=== PATIENT | female | born 2000 | race Caucasian/White ===

== ENCOUNTER 2022-07-12 11:31 | Inpatient (IN) | payer MEDICAID ==
[~2022-07-12] VITALS: Ht 154.9 cm; Wt 76.7 kg
[2022-07-12] MEDS ORDERED: TERBUTALINE SULFATE 1 MG/ML VIAL SUBCUT ONE (12:45)
[2022-07-12] MEDS ORDERED: MORPHINE 4 MG INJ. 4 MG/ML VIAL IVP PRN (12:45)
[2022-07-12] MEDS ORDERED: MISOPROSTOL 100 MCG TABLET (CYTOTEC) VG ONE (13:00)
[2022-07-12 13:42] LABS: BASOPHILS % (AUTO) 0.4 % (0.0-2.0); EOSINOPHILS # (AUTO) 0.1 K/uL (0.0-0.4); EOSINOPHILS % (AUTO) 0.9 % (0.0-4.0); HEMATOCRIT 30.4 % (36-48); HEMOGLOBIN 10.4 g/dL (12.0-16.0); LYMPHOCYTES # (AUTO) 1.2 K/uL (1.0-5.5); LYMPHOCYTES % (AUTO) 13.3 % (20.5-51.5); MEAN CORPUSCULAR HEMOGLOBIN 29 pg (27-31); MEAN CORPUSCULAR HGB CONC 34 % (32-36); MEAN CORPUSCULAR VOLUME 84 fL (79.0-98.0); MONOCYTES # (AUTO) 0.6 K/uL (0.0-1.0); MONOCYTES % (AUTO) 7.2 % (1.7-9.3); NEUTROPHILS # (AUTO) 6.9 K/uL (1.8-7.7); NEUTROPHILS % (AUTO) 78.2 % (40.0-70.0); PLATELET COUNT (AUTO) 242 K/uL (130-430); RED BLOOD CELL COUNT(AUTO) 3.62 MIL/uL (4.2-6.2); WHITE BLOOD COUNT (AUTO) 8.8 K/uL (4.8-10.8)
[2022-07-12] MEDS: LR 1,000 ML IV SCH (13:51)
[2022-07-12] MEDS: MISOPROSTOL 100 MCG TABLET (CYTOTEC) VG SCH ×2 (13:53→22:55)
[2022-07-12] MEDS ORDERED: ACYCLOVIR 400 MG TABLET PO SCH (15:00)
[2022-07-12] MEDS: ACYCLOVIR 400 MG TABLET PO SCH (15:52)
[2022-07-12 18:08] VITALS: BP_SYST 110
[2022-07-12] MEDS ORDERED: FENT2mCg/mL-ROPIVA0.2%/NS EPID 200 ML EP SCH (22:00)
[2022-07-12] MEDS ORDERED: ONDANSETRON HCL 4 MG/2 ML VIAL IVP PRN (22:00)
[2022-07-13] MEDS: LR 1,000 ML IV SCH (00:16)
[2022-07-13] MEDS: ACYCLOVIR 400 MG TABLET PO SCH ×2 (02:12→18:42)
[2022-07-13] MEDS ORDERED: OXYTOCIN/0.9 % SODIUM CHLORIDE 1,000 ML IV SCH (03:15)
[2022-07-13] MEDS ORDERED: fentaNYL CITRATE/PF 100 MCG/2 ML AMP ONE (10:54)
[2022-07-13] MEDS ORDERED: ROPIVACAINE HCL/PF 0.2% 200 ML ONE (10:55)
[2022-07-14] MEDS ORDERED: ROPIVACAINE HCL/PF 0.2% 200 ML ONE (01:15)
[2022-07-14] MEDS: ACYCLOVIR 400 MG TABLET PO SCH ×2 (02:32→14:12)
[2022-07-14] MEDS: LR 1,000 ML IV SCH ×2 (12:51→20:25)
--- NOTE | 2022-07-14 14:30 | NUR ---
CM: Late entry; Request from OB charge nurse, Pollo to arrange BLS /ambulance transfer pt to [facility], OB dept bed # 3. Addendum: 07/14/22 at 1618 by Rex Tian RN Booked with [facility] dispatcher/[facility], S with [facility] contracted rate , approved by JERALD Villatoro. The [facility] copy faxed back to [facility] per request.
[2022-07-14 14:49] LABS: BILIRUBIN,URINE NEGATIVE (NEGATIVE); BLOOD, URINE 2+ (NEGATIVE); CLARITY/URINE CLEAR (CLEAR); COLOR,URINE YELLOW (YELLOW); GLUCOSE,URINE NEGATIVE (NEGATIVE); KETONES,URINE 3+ (NEGATIVE); NITRITE, URINE NEGATIVE (NEGATIVE); PROTEIN URINE NEGATIVE (NEGATIVE); UROBILINOGEN,URINE 0.2 (0.2-1.0)
[2022-07-14 15:01] LABS: LEUKOCYTE ESTERASE ,URINE TRACE (NEGATIVE)
[2022-07-14 15:02] LABS: BACTERIA,URINE FEW /HPF (None Seen); MUCUS,URINE None Seen /LPF (None Seen); RBC,URINE 0-3 /HPF (0-3)
== END 2022-07-14 21:10 | disposition short-term general hospital (02) | DRG 566 ==
LOC: SPU 11:31
PROVIDERS: ADMIT Obstetrics & Gynecology; ATTEND Obstetrics & Gynecology
DX: O36.8330 Maternal care for abnormalities of the fetal heart rate or rhythm, third trimester, not applicable or unspecified (principal); Z20.822 Contact with and (suspected) exposure to COVID-19; Z88.8 Allergy status to other drugs, medicaments and biological substances; Z3A.39 39 weeks gestation of pregnancy
CPT/HCPCS: 36415; 81000; 81002; 85025; 86592; 86886; 86900; 86901; 94760; J2405; J2590; J3010; J7120